=== PATIENT | male | born 1945 | race African-American/Black ===

== ENCOUNTER 2018-08-15 09:34 | Inpatient (IN) | payer OTHER ==
[2018-08-15] VITALS (13 sets, daily range): BP systolic 107–278; BP diastolic 41–114
[~2018-08-15] VITALS: Ht 167.6 cm; Wt 88.9 kg
[~2018-08-15 09:34] MED LIST: ASPI-986 PO; AZIT250T12 PO; CLOP75TA16 PO; COR25 PO; FLUT1AER IH; LISI10TA5 PO; METF-414 PO; P20 PO; RANO10003 PO; SACU1TAB7 PO
[2018-08-15 13:31] LABS: HEMATOCRIT. 37.2 % (42.0-52.0); HEMOGLOBIN. 12.2 g/dL (14.0-18.0); MEAN CORPUSCULAR HEMOGLOBIN 29.8 pg (28.0-32.0); MEAN CORPUSCULAR VOLUME 91.2 fL (80.0-94.0); MEAN PLATELET VOLUME 8.6 fl (7.4-10.4); PLATELET 262 x1000/uL (130-400); RED BLOOD CELL COUNT 4.08 mill/uL (4.7-6.1); RED CELL DISTRIBUTION WIDTH 16.2 % (11.6-14.6)
[2018-08-15 13:37] LABS: CHLORIDE 101 mEq/L (98-107)
[2018-08-15] MEDS ORDERED: ONDANSETRON HCL 4MG/2ML INJ IV STA (14:08)
[2018-08-15 14:09] LABS: PLATELET ESTIMATE NORMAL
[2018-08-15] MEDS ORDERED: MAGNESIUM/ALUMINUM HYDROXIDE/SIMETHICONE 30ML UDC PO ONE (14:15)
[2018-08-15] MEDS ORDERED: VISCOUS LIDOCAINE 2% 15 ML UDC PO ONE (14:15)
[2018-08-15] MEDS ORDERED: MORPHINE SULFATE 4 MG/ML CPJ (NOT FOR IM USE) IV ONE (14:30)
[2018-08-15 14:33] LABS: CLARITY URINE CLEAR (CLEAR); COLOR URINE YELLOW (YELLOW); KETONES URINE NEGATIVE (NEGATIVE); LEUKOCYTE ESTERASE URINE TRACE (NEGATIVE); NITRITE URINE NEGATIVE (NEGATIVE); OCCULT BLOOD URINE NEGATIVE (NEGATIVE); PROTEIN URINE NEGATIVE (NEGATIVE); SPECIFIC GRAVITY URINE 1.015 (1.005-1.030); UROBILINOGEN URINE 0.2 E.U./dL (0.2-1.0)
[2018-08-15] MEDS ORDERED: ALBUTEROL (0.083%) 2.5MG/3ML NEB HHN STA (15:25)
[2018-08-15] MEDS ORDERED: IPRATROPIUM BROMIDE (0.02%) 0.5MG/2.5ML NEB HHN STA (15:25)
[2018-08-15] MEDS ORDERED: SODIUM CHLORIDE 0.9% 1,000 ML IV ONE ×2 (16:00)
[2018-08-15] MEDS ORDERED: PIPERACILLIN/TAZ 3.375G PREMIX 50 ML IV ONE (16:00)
[2018-08-15] MEDS ORDERED: HYDROMORPHONE HCL/PF 2MG/ML CPJ IV ONE (16:00)
[2018-08-15 16:14] LABS: BG BASE EXCESS 2.9 mmol/L (-2.0-2.0); BG CARBOXYHEMOGLOBIN 0.6 % (0.5-1.5); BG DEOXYHEMOGLOBIN 0.6 % (0.0-5.0); BG HCO3 ACT 25.4 mmol/L (22.0-26.0); BG METHEMOGLOBIN 0.5 % (0.0-1.5); BG OXYGEN SATURATION 99.4 % (92.0-98.5); BG OXYHEMOGLOBIN 98.3 % (94.0-97.0); BG PH 7.517 (7.350-7.450); BG PO2 195.8 mmHg (75.0-100.0); BG SAMPLE SITE LEFT BRACHIAL; BG TOTAL HEMOGLOBIN 12.3 g/dL (12.0-18.0)
[2018-08-15 16:35] LABS: INR 1.1; PROTHROMBIN TIME 10.6 sec (9.1-11.1)
[2018-08-15] MEDS ORDERED: MIDAZOLAM HCL 2 MG/2 ML VIAL ONE (16:48)
[2018-08-15] MEDS ORDERED: FENTANYL CITRATE/PF 50MCG/ML 2ML VIAL ONE (16:48)
[2018-08-15] MEDS ORDERED: PROPOFOL 200MG/20ML VIAL IV ONE ×2 (16:50→19:34)
[2018-08-15] MEDS ORDERED: LIDOCAINE HCL/PF 1% 10 MG/ML 5ML VIAL ONE (16:52)
[2018-08-15] MEDS ORDERED: SUCCINYLCHOLINE CHLORIDE 200MG/10ML IV ONE (16:54)
[2018-08-15] MEDS ORDERED: SODIUM CHLORIDE 0.9% 10ML VIAL ONE ×2 (16:55→16:59)
[2018-08-15] MEDS ORDERED: PHENYLEPHRINE HCL 10 MG/ML 1ML (IV VIAL) IV ONE (16:56)
[2018-08-15] MEDS ORDERED: LEVOFLOXACIN 500MG PREMIX 0 ML IV ONE (17:01)
[2018-08-15] MEDS ORDERED: METRONIDAZOLE 500 MG PREMIX 0 ML IV ONE (17:02)
[2018-08-15] MEDS ORDERED: BUPIVACAINE HCL/PF 0.5% (5MG/ML) 10ML ONE (17:02)
[2018-08-15] MEDS ORDERED: ROCURONIUM BROMIDE 10MG/ML VIAL 5ML IV ONE ×2 (17:04→18:31)
[2018-08-15] MEDS ORDERED: NOREPINEPHRINE 4MG/250ML PMX 250 ML IV NR (17:45)
[2018-08-15] MEDS ORDERED: NITROGLYCERIN OINT 1GM/INCH UDPKT TD NR (17:47)
[2018-08-15] MEDS ORDERED: DEXT 5%/0.45% NACL KCL 20MEQ/L 1,000 ML IV SCH (17:48)
[2018-08-15] MEDS ORDERED: ONDANSETRON HCL 4MG/2ML INJ IV PRN (18:00)
[2018-08-15 18:17] LABS: PARTIAL THROMBOPLASTIN TIME 29.7 sec (23.4-31.0)
[2018-08-15 19:07] LABS: BG BASE EXCESS -0.7 mmol/L (-2.0-2.0); BG CARBOXYHEMOGLOBIN 0.1 % (0.5-1.5); BG DEOXYHEMOGLOBIN 0.6 % (0.0-5.0); BG FRACTION INSPIRED OXYGEN 100; BG METHEMOGLOBIN 0.5 % (0.0-1.5); BG OXYGEN SATURATION 99.4 % (92.0-98.5); BG OXYHEMOGLOBIN 98.8 % (94.0-97.0); BG PCO2 39.4 mmHg (35.0-45.0); BG PH 7.402 (7.350-7.450); BG PO2 332.4 mmHg (75.0-100.0); BG SAMPLE SITE A-LINE; BG TOTAL HEMOGLOBIN 11.4 g/dL (12.0-18.0); BG VENT MODE AMBU BAG
[2018-08-15] MEDS ORDERED: ENALAPRIL 1.25MG/ML VIAL 1ML IV ONE (20:58)
[2018-08-15] MEDS ORDERED: ENALAPRIL 1.25MG/ML VIAL 1ML IV PRN (21:00)
[2018-08-15] MEDS ORDERED: LORAZEPAM 2MG/ML CPJ IV PRN (21:00)
[2018-08-15] MEDS: DEXT 5%/0.45% NACL KCL 20MEQ/L 1,000 ML IV SCH (22:13)
[2018-08-15] MEDS: CEFAZOLIN 1000MG PREMIX 50 ML IV SCH (22:23)
[2018-08-15] MEDS ORDERED: FENTANYL CITRATE/PF 500 MCG in SODIUM CHLORIDE 0.9% 40 ML IV PRN (22:30)
[2018-08-15] MEDS: HYDROMORPHONE HCL/PF 2MG/ML CPJ IV PRN (22:33)
[2018-08-15] MEDS: MIDAZOLAM HCL 50 MG in DEXTROSE 5% WATER 40 ML IV PRN (23:28)
[2018-08-16] VITALS (109 sets, daily range): BP systolic 0–185; BP diastolic 0–147
[2018-08-16 00:55] LABS: BG CARBOXYHEMOGLOBIN 0.3 % (0.5-1.5); BG DEOXYHEMOGLOBIN 0.9 % (0.0-5.0); BG FRACTION INSPIRED OXYGEN 50; BG HCO3 ACT 24.8 mmol/L (22.0-26.0); BG METHEMOGLOBIN 0.6 % (0.0-1.5); BG OXYGEN SATURATION 99.1 % (92.0-98.5); BG OXYHEMOGLOBIN 98.2 % (94.0-97.0); BG PCO2 50.8 mmHg (35.0-45.0); BG PH 7.307 (7.350-7.450); BG PO2 195.5 mmHg (75.0-100.0); BG SAMPLE SITE A-LINE; BG TIDAL VOLUME(mL) 500 mL; BG TOTAL HEMOGLOBIN 12.8 g/dL (12.0-18.0); BG VENT MODE VENT - A/C; BG VENT RATE 16 set
[2018-08-16 00:59] LABS: HEMOGLOBIN 11.4 g/dL (14.0-18.0); MEAN CORPUSCULAR HEMOGLOBIN 29.6 pg (28.0-32.0); MEAN CORPUSCULAR VOLUME 90.9 fL (80.0-94.0); PLATELET 231 x1000/uL (130-400); RED BLOOD CELL COUNT 3.85 mill/uL (4.7-6.1); RED CELL DISTRIBUTION WIDTH 16.6 % (11.6-14.6)
[2018-08-16 01:03] LABS: CHLORIDE 108 mEq/L (98-107)
[2018-08-16] MEDS: METRONIDAZOLE 500 MG PREMIX 100 ML IV SCH ×2 (02:15→09:17)
[2018-08-16] MEDS ORDERED: SODIUM CHLORIDE 0.9% 500 ML IV SCH (04:15)
[2018-08-16] MEDS ORDERED: SODIUM CHLORIDE 0.9% 500 ML IV ONE ×3 (05:15→09:00)
[2018-08-16] MEDS: CEFAZOLIN 1000MG PREMIX 50 ML IV SCH ×2 (06:15→14:26)
[2018-08-16 06:34] LABS: HEMATOCRIT. 31.7 % (42.0-52.0); HEMOGLOBIN. 10.4 g/dL (14.0-18.0); MEAN CORPUSCULAR HEMOGLOBIN 29.7 pg (28.0-32.0); MEAN CORPUSCULAR VOLUME 90.8 fL (80.0-94.0); MEAN PLATELET VOLUME 9.8 fl (7.4-10.4); PLATELET 149 x1000/uL (130-400); RED BLOOD CELL COUNT 3.49 mill/uL (4.7-6.1); RED CELL DISTRIBUTION WIDTH 16.3 % (11.6-14.6)
[2018-08-16 06:51] LABS: CHLORIDE 109 mEq/L (98-107)
[2018-08-16] MEDS ORDERED: NOREPINEPHRINE 32 MG in DEXT 5% WATER 468 ML IV PRN (08:00)
[2018-08-16] MEDS ORDERED: NOREPINEPHRINE BITARTRATE 1MG/ML 4ML IV ONE (08:21)
[2018-08-16] MEDS ORDERED: PHENYLEPHRINE 40 MG in DEXT 5% WATER 246 ML IV PRN (09:00)
[2018-08-16] MEDS: ACETAMINOPHEN 325MG TABLET PO PRN (09:17)
[2018-08-16] MEDS: ENOXAPARIN 40MG/0.4ML SYR SUBCUT SCH (09:17)
[2018-08-16] MEDS: DEXT 5%/0.45% NACL KCL 20MEQ/L 1,000 ML IV SCH ×2 (09:19→16:51)
[2018-08-16] MEDS: MIDAZOLAM HCL 50 MG in DEXTROSE 5% WATER 40 ML IV PRN (09:40)
[2018-08-16 10:32] LABS: BG BASE EXCESS -2.2 mmol/L (-2.0-2.0); BG CARBOXYHEMOGLOBIN 0.2 % (0.5-1.5); BG FRACTION INSPIRED OXYGEN 50; BG HCO3 ACT 22.2 mmol/L (22.0-26.0); BG METHEMOGLOBIN 0.5 % (0.0-1.5); BG OXYHEMOGLOBIN 98.3 % (94.0-97.0); BG PCO2 36.8 mmHg (35.0-45.0); BG PH 7.399 (7.350-7.450); BG PO2 188.4 mmHg (75.0-100.0); BG SAMPLE SITE RIGHT RADIAL; BG TIDAL VOLUME(mL) 500 mL; BG TOTAL HEMOGLOBIN 10.6 g/dL (12.0-18.0); BG VENT MODE VENT - A/C; BG VENT RATE 20 set
[2018-08-16] MEDS ORDERED: VANCOMYCIN 1250MG in DEXTROSE 5% WATER 250ML IV NR (11:00)
[2018-08-16] MEDS: PIPERACILLIN/TAZ 3.375G PREMIX 50 ML IV SCH ×3 (11:10→22:34)
[2018-08-16] MEDS ORDERED: PIPERACILLIN/TAZOBACTAM 3.375GM/50ML PREMIX IV ONE (12:00)
[2018-08-16 14:55] LABS: PLATELET ESTIMATE NORMAL
[2018-08-16] MEDS ORDERED: DEXTROSE 50% WATER 50ML SYRINGE IV PRN (16:15)
[2018-08-16] MEDS: PANTOPRAZOLE SODIUM 40 MG/VIAL IV SCH (16:51)
[2018-08-16] MEDS: BLOOD SUGAR DIAGNOSTIC STRIP TEST SCH ×2 (16:52→23:32)
[2018-08-16] MEDS: INSULIN LISPRO 100 UNITS/ML SUBCUT SCH ×2 (16:52→23:32)
[2018-08-16] MEDS ORDERED: LORAZEPAM 2MG/ML CPJ IV PRN (17:00)
[2018-08-16] MEDS: LORAZEPAM 2MG/ML CPJ IM PRN (21:09)
[2018-08-16] MEDS: VANCOMYCIN 1 G PREMIX 200 ML IV SCH (23:17)
[2018-08-17] VITALS (96 sets, daily range): BP systolic 103–171; BP diastolic 42–116
[2018-08-17] MEDS: LORAZEPAM 2MG/ML CPJ IM PRN (03:31)
[2018-08-17] MEDS: DEXT 5%/0.45% NACL KCL 20MEQ/L 1,000 ML IV SCH ×2 (03:32→14:13)
[2018-08-17 04:57] LABS: BASOPHILS % 0.2 % (0.0-2.0); EOSINOPHILS % 2.4 % (0.0-5.0); HEMATOCRIT. 30.1 % (42.0-52.0); LYMPHOCYTES % 8.1 % (20.0-50.0); MEAN CORPUSCULAR HEMOGLOBIN 30.3 pg (28.0-32.0); MEAN CORPUSCULAR VOLUME 91.1 fL (80.0-94.0); MEAN PLATELET VOLUME 9.6 fl (7.4-10.4); MONOCYTES % 8.7 % (2.0-8.0); NEUTROPHILS % 80.6 % (40.0-76.0); PLATELET 175 x1000/uL (130-400); RED BLOOD CELL COUNT 3.31 mill/uL (4.7-6.1); RED CELL DISTRIBUTION WIDTH 16.6 % (11.6-14.6)
[2018-08-17 05:18] LABS: CHLORIDE 107 mEq/L (98-107)
[2018-08-17] MEDS: PIPERACILLIN/TAZ 3.375G PREMIX 50 ML IV SCH ×4 (05:21→22:30)
[2018-08-17] MEDS: HYDROMORPHONE HCL/PF 2MG/ML CPJ IM PRN (05:22)
[2018-08-17] MEDS: INSULIN LISPRO 100 UNITS/ML SUBCUT SCH ×3 (06:00→17:00)
[2018-08-17] MEDS: BLOOD SUGAR DIAGNOSTIC STRIP TEST SCH ×3 (06:17→17:00)
[2018-08-17] MEDS: PANTOPRAZOLE SODIUM 40 MG/VIAL IV SCH (08:49)
[2018-08-17] MEDS: ENOXAPARIN 40MG/0.4ML SYR SUBCUT SCH (08:50)
[2018-08-17 08:56] LABS: BG BASE EXCESS 0.9 mmol/L (-2.0-2.0); BG CARBOXYHEMOGLOBIN 0.3 % (0.5-1.5); BG DEOXYHEMOGLOBIN 0.9 % (0.0-5.0); BG FRACTION INSPIRED OXYGEN 40; BG HCO3 ACT 25.5 mmol/L (22.0-26.0); BG METHEMOGLOBIN 0.1 % (0.0-1.5); BG OXYGEN SATURATION 99.1 % (92.0-98.5); BG OXYHEMOGLOBIN 98.7 % (94.0-97.0); BG PCO2 40.6 mmHg (35.0-45.0); BG PH 7.416 (7.350-7.450); BG PO2 156.7 mmHg (75.0-100.0); BG SAMPLE SITE RIGHT BRACHIAL; BG TIDAL VOLUME(mL) 500 mL; BG TOTAL HEMOGLOBIN 9.7 g/dL (12.0-18.0); BG VENT MODE VENT - A/C; BG VENT RATE 20 set
[2018-08-17] MEDS: VANCOMYCIN 1 G PREMIX 200 ML IV SCH ×2 (10:04→22:29)
[2018-08-17] MEDS ORDERED: IPRATROPIUM/ALBUTEROL 0.5-3(2.5)MG/3ML NEB HHN PRN (11:45)
[2018-08-17] MEDS: METHYLPREDNISOLONE SOD SUCC 40 MG/ML VIAL IV SCH ×2 (12:15→20:51)
[2018-08-17 12:37] LABS: BG BASE EXCESS 1.7 mmol/L (-2.0-2.0); BG CARBOXYHEMOGLOBIN 0.3 % (0.5-1.5); BG DEOXYHEMOGLOBIN 3.6 % (0.0-5.0); BG FRACTION INSPIRED OXYGEN 30; BG HCO3 ACT 26.6 mmol/L (22.0-26.0); BG METHEMOGLOBIN 0.3 % (0.0-1.5); BG OXYGEN SATURATION 96.4 % (92.0-98.5); BG OXYHEMOGLOBIN 95.8 % (94.0-97.0); BG PCO2 43.1 mmHg (35.0-45.0); BG PH 7.408 (7.350-7.450); BG PO2 84.9 mmHg (75.0-100.0); BG PRESSURE SUPPORT 10; BG SAMPLE SITE LEFT RADIAL; BG TOTAL HEMOGLOBIN 9.9 g/dL (12.0-18.0); BG VENT MODE VENT - CPAP
[2018-08-17] MEDS ORDERED: LORAZEPAM 2MG/ML CPJ IV PRN (13:00)
[2018-08-17] MEDS: FUROSEMIDE 40MG/4ML VIAL IVP SCH (14:13)
[2018-08-17] MEDS: IPRATROPIUM/ALBUTEROL 0.5-3(2.5)MG/3ML NEB HHN SCH ×2 (15:37→20:21)
[2018-08-18] VITALS (66 sets, daily range): BP systolic 120–186; BP diastolic 53–94
[2018-08-18] MEDS: BLOOD SUGAR DIAGNOSTIC STRIP TEST SCH ×5 (00:14→23:54)
[2018-08-18] MEDS: IPRATROPIUM/ALBUTEROL 0.5-3(2.5)MG/3ML NEB HHN SCH ×6 (00:14→20:09)
[2018-08-18] MEDS: INSULIN LISPRO 100 UNITS/ML SUBCUT SCH ×4 (00:18→18:21)
[2018-08-18] MEDS: DEXT 5%/0.45% NACL KCL 20MEQ/L 1,000 ML IV SCH ×3 (00:21→23:54)
[2018-08-18] MEDS: METHYLPREDNISOLONE SOD SUCC 40 MG/ML VIAL IV SCH ×3 (04:40→20:45)
[2018-08-18] MEDS: PIPERACILLIN/TAZ 3.375G PREMIX 50 ML IV SCH ×4 (04:41→23:35)
[2018-08-18 04:46] LABS: HEMATOCRIT. 26.4 % (42.0-52.0); HEMOGLOBIN. 8.7 g/dL (14.0-18.0); MEAN CORPUSCULAR HEMOGLOBIN 29.8 pg (28.0-32.0); MEAN CORPUSCULAR VOLUME 89.9 fL (80.0-94.0); MEAN PLATELET VOLUME 9.3 fl (7.4-10.4); PLATELET 160 x1000/uL (130-400); RED BLOOD CELL COUNT 2.93 mill/uL (4.7-6.1); RED CELL DISTRIBUTION WIDTH 16.5 % (11.6-14.6)
[2018-08-18 04:50] LABS: CHLORIDE 105 mEq/L (98-107)
[2018-08-18 07:29] LABS: BG BASE EXCESS 1.8 mmol/L (-2.0-2.0); BG CARBOXYHEMOGLOBIN 0.5 % (0.5-1.5); BG DEOXYHEMOGLOBIN 3.9 % (0.0-5.0); BG FRACTION INSPIRED OXYGEN 30; BG METHEMOGLOBIN 0.3 % (0.0-1.5); BG OXYGEN SATURATION 96.1 % (92.0-98.5); BG OXYHEMOGLOBIN 95.3 % (94.0-97.0); BG PCO2 39.1 mmHg (35.0-45.0); BG PH 7.441 (7.350-7.450); BG PO2 82.5 mmHg (75.0-100.0); BG SAMPLE SITE RIGHT RADIAL; BG TIDAL VOLUME(mL) 500 mL; BG TOTAL HEMOGLOBIN 9.4 g/dL (12.0-18.0); BG VENT MODE VENT - A/C; BG VENT RATE 20 set
[2018-08-18 08:55] LABS: PLATELET ESTIMATE NORMAL
[2018-08-18] MEDS: FUROSEMIDE 40MG/4ML VIAL IVP SCH (08:57)
[2018-08-18] MEDS: ENOXAPARIN 40MG/0.4ML SYR SUBCUT SCH (08:57)
[2018-08-18] MEDS: PANTOPRAZOLE SODIUM 40 MG/VIAL IV SCH (08:57)
[2018-08-18] MEDS: VANCOMYCIN 1 G PREMIX 200 ML IV SCH ×2 (12:15→23:35)
[2018-08-18] MEDS: HYDROMORPHONE HCL/PF 2MG/ML CPJ IV PRN (16:54)
[2018-08-19] VITALS (55 sets, daily range): BP systolic 65–211; BP diastolic 41–96
[2018-08-19] MEDS: INSULIN LISPRO 100 UNITS/ML SUBCUT SCH ×4 (00:15→17:09)
[2018-08-19] MEDS: IPRATROPIUM/ALBUTEROL 0.5-3(2.5)MG/3ML NEB HHN SCH ×6 (00:54→20:41)
[2018-08-19] MEDS: METHYLPREDNISOLONE SOD SUCC 40 MG/ML VIAL IV SCH ×3 (04:17→20:20)
[2018-08-19] MEDS: PIPERACILLIN/TAZ 3.375G PREMIX 50 ML IV SCH ×4 (04:17→22:27)
[2018-08-19 05:02] LABS: HEMATOCRIT. 27.2 % (42.0-52.0); HEMOGLOBIN. 9.1 g/dL (14.0-18.0); MEAN CORPUSCULAR HEMOGLOBIN 30.1 pg (28.0-32.0); MEAN CORPUSCULAR VOLUME 90.1 fL (80.0-94.0); MEAN PLATELET VOLUME 9.7 fl (7.4-10.4); PLATELET 178 x1000/uL (130-400); RED BLOOD CELL COUNT 3.02 mill/uL (4.7-6.1); RED CELL DISTRIBUTION WIDTH 16.5 % (11.6-14.6)
[2018-08-19 05:09] LABS: CHLORIDE 105 mEq/L (98-107)
[2018-08-19] MEDS: HYDROMORPHONE HCL/PF 2MG/ML CPJ IV PRN ×3 (06:16→22:20)
[2018-08-19] MEDS: BLOOD SUGAR DIAGNOSTIC STRIP TEST SCH ×3 (06:34→17:04)
[2018-08-19] MEDS: ENOXAPARIN 40MG/0.4ML SYR SUBCUT SCH (08:31)
[2018-08-19] MEDS: PANTOPRAZOLE SODIUM 40 MG/VIAL IV SCH (08:31)
[2018-08-19] MEDS: ACETAMINOPHEN 325MG TABLET PO PRN (09:55)
[2018-08-19] MEDS: VANCOMYCIN 1 G PREMIX 200 ML IV SCH ×2 (12:15→23:05)
[2018-08-19] MEDS: DEXT 5%/0.45% NACL KCL 20MEQ/L 1,000 ML IV SCH (12:25)
[2018-08-19] MEDS ORDERED: LORAZEPAM 2MG/ML CPJ IV PRN (13:00)
[2018-08-19] MEDS ORDERED: INSULIN GLARGINE UD 100 UNITS/ML SYR SUBCUT ONE (14:00)
[2018-08-19 14:45] LABS: BG BASE EXCESS 0.5 mmol/L (-2.0-2.0); BG CARBOXYHEMOGLOBIN 0.3 % (0.5-1.5); BG DEOXYHEMOGLOBIN 2.6 % (0.0-5.0); BG FRACTION INSPIRED OXYGEN 30; BG HCO3 ACT 24.6 mmol/L (22.0-26.0); BG OXYGEN SATURATION 97.4 % (92.0-98.5); BG OXYHEMOGLOBIN 97.1 % (94.0-97.0); BG PCO2 37.2 mmHg (35.0-45.0); BG PH 7.438 (7.350-7.450); BG PO2 99.2 mmHg (75.0-100.0); BG SAMPLE SITE RIGHT RADIAL; BG TIDAL VOLUME(mL) 500 mL; BG TOTAL HEMOGLOBIN 9.8 g/dL (12.0-18.0); BG VENT MODE VENT - A/C; BG VENT RATE 20 set
[2018-08-19 15:03] LABS: PLATELET ESTIMATE NORMAL
[2018-08-19] MEDS ORDERED: DILTIAZEM HCL 125 MG in DEXT 5% WATER 100 ML IV SCH (21:45)
[2018-08-20] VITALS (79 sets, daily range): BP systolic 108–212; BP diastolic 55–126
[2018-08-20] MEDS: BLOOD SUGAR DIAGNOSTIC STRIP TEST SCH ×5 (00:22→23:52)
[2018-08-20] MEDS: INSULIN LISPRO 100 UNITS/ML SUBCUT SCH ×5 (00:29→23:57)
[2018-08-20] MEDS: IPRATROPIUM/ALBUTEROL 0.5-3(2.5)MG/3ML NEB HHN SCH ×6 (00:33→20:05)
[2018-08-20] MEDS: DEXT 5%/0.45% NACL KCL 20MEQ/L 1,000 ML IV SCH (03:14)
[2018-08-20] MEDS: PIPERACILLIN/TAZ 3.375G PREMIX 50 ML IV SCH ×4 (04:40→21:34)
[2018-08-20] MEDS ORDERED: NITROGLYCERIN OINT 1GM/INCH UDPKT TD SCH (06:15)
[2018-08-20 06:26] LABS: HEMATOCRIT. 29.3 % (42.0-52.0); HEMOGLOBIN. 9.7 g/dL (14.0-18.0); MEAN CORPUSCULAR HEMOGLOBIN 29.9 pg (28.0-32.0); MEAN CORPUSCULAR VOLUME 90.1 fL (80.0-94.0); MEAN PLATELET VOLUME 9.8 fl (7.4-10.4); PLATELET 189 x1000/uL (130-400); RED BLOOD CELL COUNT 3.25 mill/uL (4.7-6.1); RED CELL DISTRIBUTION WIDTH 16.4 % (11.6-14.6)
[2018-08-20 06:37] LABS: CHLORIDE 106 mEq/L (98-107)
[2018-08-20] MEDS: NITROGLYCERIN OINT 1GM/INCH UDPKT TD PRN (06:46)
[2018-08-20 08:01] LABS: PLATELET ESTIMATE NORMAL
[2018-08-20 08:27] LABS: BG BASE EXCESS 0.6 mmol/L (-2.0-2.0); BG CARBOXYHEMOGLOBIN 0.3 % (0.5-1.5); BG DEOXYHEMOGLOBIN 2.5 % (0.0-5.0); BG FRACTION INSPIRED OXYGEN 30; BG HCO3 ACT 23.8 mmol/L (22.0-26.0); BG METHEMOGLOBIN 0.6 % (0.0-1.5); BG OXYGEN SATURATION 97.5 % (92.0-98.5); BG OXYHEMOGLOBIN 96.6 % (94.0-97.0); BG PCO2 33.1 mmHg (35.0-45.0); BG PH 7.475 (7.350-7.450); BG PO2 109.3 mmHg (75.0-100.0); BG SAMPLE SITE RIGHT RADIAL; BG TIDAL VOLUME(mL) 500 mL; BG TOTAL HEMOGLOBIN 10.1 g/dL (12.0-18.0); BG VENT MODE VENT - A/C; BG VENT RATE 20 set
[2018-08-20] MEDS: METHYLPREDNISOLONE SOD SUCC 40 MG/ML VIAL IV SCH ×2 (09:21→21:15)
[2018-08-20] MEDS: ENOXAPARIN 40MG/0.4ML SYR SUBCUT SCH (09:22)
[2018-08-20] MEDS: PANTOPRAZOLE SODIUM 40 MG/VIAL IV SCH (09:22)
[2018-08-20] MEDS ORDERED: FUROSEMIDE 100MG/10ML VIAL IVP NR (09:45)
[2018-08-20 10:06] LABS: BG BASE EXCESS 2.4 mmol/L (-2.0-2.0); BG CARBOXYHEMOGLOBIN 0.3 % (0.5-1.5); BG DEOXYHEMOGLOBIN 3.8 % (0.0-5.0); BG FRACTION INSPIRED OXYGEN 30; BG HCO3 ACT 26.1 mmol/L (22.0-26.0); BG METHEMOGLOBIN 0.3 % (0.0-1.5); BG OXYGEN SATURATION 96.2 % (92.0-98.5); BG OXYHEMOGLOBIN 95.6 % (94.0-97.0); BG PH 7.467 (7.350-7.450); BG PO2 86.2 mmHg (75.0-100.0); BG SAMPLE SITE RIGHT RADIAL; BG TIDAL VOLUME(mL) 500 mL; BG VENT MODE VENT - SIMV; BG VENT RATE 8 set
[2018-08-20] MEDS: INSULIN GLARGINE UD 100 UNITS/ML SYR SUBCUT SCH (10:10)
[2018-08-20] MEDS: NICARDIPINE 50 MG in SODIUM CHLORIDE 0.9% 230 ML IV SCH ×2 (11:06→22:29)
[2018-08-20] MEDS: VANCOMYCIN 1 G PREMIX 200 ML IV SCH (12:30)
[2018-08-20] MEDS: HYDROMORPHONE HCL/PF 2MG/ML CPJ IV PRN ×2 (12:41→18:04)
[2018-08-20 15:26] LABS: BG BASE EXCESS 2.5 mmol/L (-2.0-2.0); BG CARBOXYHEMOGLOBIN 0.3 % (0.5-1.5); BG DEOXYHEMOGLOBIN 4.4 % (0.0-5.0); BG FRACTION INSPIRED OXYGEN 30; BG HCO3 ACT 25.9 mmol/L (22.0-26.0); BG METHEMOGLOBIN 0.3 % (0.0-1.5); BG OXYGEN SATURATION 95.6 % (92.0-98.5); BG PCO2 35.4 mmHg (35.0-45.0); BG PH 7.482 (7.350-7.450); BG PRESSURE SUPPORT 10; BG SAMPLE SITE RIGHT RADIAL; BG TOTAL HEMOGLOBIN 10.9 g/dL (12.0-18.0); BG VENT MODE VENT - CPAP
[2018-08-20 17:23] LABS: BG BASE EXCESS 4.8 mmol/L (-2.0-2.0); BG CARBOXYHEMOGLOBIN 0.3 % (0.5-1.5); BG DEOXYHEMOGLOBIN 3.4 % (0.0-5.0); BG FRACTION INSPIRED OXYGEN 40; BG HCO3 ACT 28.3 mmol/L (22.0-26.0); BG METHEMOGLOBIN 0.3 % (0.0-1.5); BG OXYGEN SATURATION 96.6 % (92.0-98.5); BG PO2 86.4 mmHg (75.0-100.0); BG SAMPLE SITE RIGHT RADIAL; BG TOTAL HEMOGLOBIN 11.4 g/dL (12.0-18.0); BG VENT MODE MASK - AEROSOL
[2018-08-20] MEDS: ACETAMINOPHEN 325MG TABLET PO PRN (21:16)
[2018-08-20] MEDS: HYDROMORPHONE HCL/PF 2MG/ML CPJ IM PRN (23:00)
[2018-08-21] VITALS (72 sets, daily range): BP systolic 97–168; BP diastolic 48–88
[2018-08-21] MEDS: IPRATROPIUM/ALBUTEROL 0.5-3(2.5)MG/3ML NEB HHN SCH ×6 (00:16→21:34)
[2018-08-21] MEDS: VANCOMYCIN 1 G PREMIX 200 ML IV SCH ×2 (01:40→14:20)
[2018-08-21] MEDS: NICARDIPINE 50 MG in SODIUM CHLORIDE 0.9% 230 ML IV SCH (03:30)
[2018-08-21] MEDS: PIPERACILLIN/TAZ 3.375G PREMIX 50 ML IV SCH ×4 (04:35→23:03)
[2018-08-21] MEDS: NITROGLYCERIN OINT 1GM/INCH UDPKT TD PRN ×3 (05:35→05:49)
[2018-08-21 05:38] LABS: HEMATOCRIT. 31.4 % (42.0-52.0); HEMOGLOBIN. 10.4 g/dL (14.0-18.0); MEAN CORPUSCULAR HEMOGLOBIN 29.7 pg (28.0-32.0); MEAN CORPUSCULAR VOLUME 89.5 fL (80.0-94.0); RED BLOOD CELL COUNT 3.51 mill/uL (4.7-6.1); RED CELL DISTRIBUTION WIDTH 16.2 % (11.6-14.6)
[2018-08-21 05:55] LABS: CHLORIDE 104 mEq/L (98-107)
[2018-08-21] MEDS: BLOOD SUGAR DIAGNOSTIC STRIP TEST SCH ×4 (06:09→23:33)
[2018-08-21] MEDS: INSULIN LISPRO 100 UNITS/ML SUBCUT SCH ×3 (06:12→23:33)
[2018-08-21 08:18] LABS: PLATELET ESTIMATE NORMAL
[2018-08-21 08:20] LABS: MEAN PLATELET VOLUME 9.8 fl (7.4-10.4); PLATELET 230 x1000/uL (130-400)
[2018-08-21] MEDS: PANTOPRAZOLE SODIUM 40 MG/VIAL IV SCH (09:00)
[2018-08-21] MEDS: METHYLPREDNISOLONE SOD SUCC 40 MG/ML VIAL IV SCH (09:00)
[2018-08-21] MEDS: ENOXAPARIN 40MG/0.4ML SYR SUBCUT SCH (09:00)
[2018-08-21] MEDS: CARVEDILOL 3.125 MG TABLET PO SCH ×2 (11:13→21:22)
[2018-08-21] MEDS: INSULIN GLARGINE UD 100 UNITS/ML SYR SUBCUT SCH (11:14)
[2018-08-21] MEDS ORDERED: KCL 20MEQ/100ML PREMIX 100 ML IV SCH (12:00)
[2018-08-21] MEDS ORDERED: PHENOL/SODIUM PHENOLATE 1.4% SRPAY 177ML MM PRN (13:00)
[2018-08-21 13:22] LABS: HEMATOCRIT. 31.9 % (42.0-52.0); HEMOGLOBIN. 10.4 g/dL (14.0-18.0); MEAN CORPUSCULAR HEMOGLOBIN 29.1 pg (28.0-32.0); MEAN CORPUSCULAR VOLUME 89.8 fL (80.0-94.0); MEAN PLATELET VOLUME 9.3 fl (7.4-10.4); PLATELET 234 x1000/uL (130-400); RED BLOOD CELL COUNT 3.56 mill/uL (4.7-6.1); RED CELL DISTRIBUTION WIDTH 16.2 % (11.6-14.6)
[2018-08-21 13:41] LABS: PLATELET ESTIMATE NORMAL
[2018-08-21 13:47] LABS: CHLORIDE 107 mEq/L (98-107)
[2018-08-21] MEDS ORDERED: THROAT LOZENGES-BENZOCAINE/MENTH/CETYLPYRD CL LOZENGES MM PRN (14:00)
[2018-08-21] MEDS: HYDROMORPHONE HCL/PF 2MG/ML CPJ IM PRN (14:19)
[2018-08-21] MEDS: FUROSEMIDE 40MG TABLET PO SCH (14:20)
[2018-08-21] MEDS ORDERED: HYDROMORPHONE HCL/PF 2MG/ML CPJ IM PRN (19:00)
[2018-08-21] MEDS: ENOXAPARIN 80MG/0.8ML SYR SUBCUT SCH (21:22)
[2018-08-21] MEDS: HYDROMORPHONE HCL/PF 2MG/ML CPJ IV PRN (21:55)
[2018-08-22] VITALS (12 sets, daily range): BP systolic 117–157; BP diastolic 47–80
[2018-08-22] MEDS: VANCOMYCIN 1 G PREMIX 200 ML IV SCH ×2 (00:34→12:35)
[2018-08-22] MEDS: IPRATROPIUM/ALBUTEROL 0.5-3(2.5)MG/3ML NEB HHN SCH ×6 (00:46→21:24)
[2018-08-22] MEDS: NITROGLYCERIN OINT 1GM/INCH UDPKT TD SCH ×2 (04:37→15:05)
[2018-08-22] MEDS: PIPERACILLIN/TAZ 3.375G PREMIX 50 ML IV SCH ×4 (05:45→23:05)
[2018-08-22] MEDS: INSULIN LISPRO 100 UNITS/ML SUBCUT SCH ×3 (06:00→18:55)
[2018-08-22] MEDS: BLOOD SUGAR DIAGNOSTIC STRIP TEST SCH ×3 (06:19→17:20)
[2018-08-22] MEDS: HYDROMORPHONE HCL/PF 2MG/ML CPJ IV PRN ×2 (06:22→15:04)
[2018-08-22 07:31] LABS: INR 1.1; PROTHROMBIN TIME 10.6 sec (9.1-11.1)
[2018-08-22 07:39] LABS: HEMATOCRIT. 31.7 % (42.0-52.0); HEMOGLOBIN. 10.2 g/dL (14.0-18.0); MEAN CORPUSCULAR HEMOGLOBIN 29.2 pg (28.0-32.0); MEAN CORPUSCULAR VOLUME 90.5 fL (80.0-94.0); MEAN PLATELET VOLUME 9.9 fl (7.4-10.4); PLATELET 206 x1000/uL (130-400); RED CELL DISTRIBUTION WIDTH 16.4 % (11.6-14.6)
[2018-08-22 07:47] LABS: CHLORIDE 106 mEq/L (98-107)
[2018-08-22] MEDS: METHYLPREDNISOLONE SOD SUCC 40 MG/ML VIAL IV SCH (09:25)
[2018-08-22] MEDS: PANTOPRAZOLE SODIUM 40 MG/VIAL IV SCH (09:25)
[2018-08-22] MEDS: ENOXAPARIN 80MG/0.8ML SYR SUBCUT SCH (09:26)
[2018-08-22] MEDS: FUROSEMIDE 40MG TABLET PO SCH (09:26)
[2018-08-22] MEDS: INSULIN GLARGINE UD 100 UNITS/ML SYR SUBCUT SCH (09:28)
[2018-08-22] MEDS: CARVEDILOL 3.125 MG TABLET PO SCH (09:28)
[2018-08-22] MEDS: ACETAMINOPHEN 325MG TABLET PO PRN (11:19)
[2018-08-22] MEDS: HYDROCODONE/ACETAMINOPHEN 5/325MG TABLET PO PRN (22:15)
[2018-08-23] VITALS (13 sets, daily range): BP systolic 109–168; BP diastolic 43–76
[2018-08-23] MEDS: BLOOD SUGAR DIAGNOSTIC STRIP TEST SCH ×4 (00:07→18:40)
[2018-08-23] MEDS: IPRATROPIUM/ALBUTEROL 0.5-3(2.5)MG/3ML NEB HHN SCH ×6 (00:33→20:26)
[2018-08-23] MEDS: VANCOMYCIN 1 G PREMIX 200 ML IV SCH ×2 (01:05→14:11)
[2018-08-23] MEDS: NITROGLYCERIN OINT 1GM/INCH UDPKT TD SCH ×2 (05:15→17:26)
[2018-08-23] MEDS: PIPERACILLIN/TAZ 3.375G PREMIX 50 ML IV SCH ×3 (05:15→17:26)
[2018-08-23] MEDS: HYDROCODONE/ACETAMINOPHEN 5/325MG TABLET PO PRN ×3 (05:32→20:10)
[2018-08-23] MEDS: INSULIN LISPRO 100 UNITS/ML SUBCUT SCH ×4 (05:56→18:39)
[2018-08-23] MEDS: NITROGLYCERIN 0.4MG TABLET SL SL PRN (06:09)
[2018-08-23 09:13] LABS: HEMOGLOBIN. 9.6 g/dL (14.0-18.0); MEAN CORPUSCULAR HEMOGLOBIN 29.7 pg (28.0-32.0); MEAN CORPUSCULAR VOLUME 89.5 fL (80.0-94.0); MEAN PLATELET VOLUME 8.7 fl (7.4-10.4); PLATELET 245 x1000/uL (130-400); RED BLOOD CELL COUNT 3.24 mill/uL (4.7-6.1); RED CELL DISTRIBUTION WIDTH 16.5 % (11.6-14.6)
[2018-08-23 09:20] LABS: CHLORIDE 105 mEq/L (98-107)
[2018-08-23] MEDS: PANTOPRAZOLE SODIUM 40 MG/VIAL IV SCH (10:55)
[2018-08-23] MEDS: METHYLPREDNISOLONE SOD SUCC 40 MG/ML VIAL IV SCH (10:55)
[2018-08-23] MEDS: TAMSULOSIN HCL 0.4MG SR CAPSULE PO SCH (10:56)
[2018-08-23] MEDS: FUROSEMIDE 40MG TABLET PO SCH (10:56)
[2018-08-23] MEDS: INSULIN GLARGINE UD 100 UNITS/ML SYR SUBCUT SCH (10:58)
[2018-08-23] MEDS: POTASSIUM CHLORIDE 20MEQ TABLET SR PO SCH (11:00)
[2018-08-23] MEDS: ENOXAPARIN 40MG/0.4ML SYR SUBCUT SCH (11:15)
[2018-08-23 11:21] LABS: PLATELET ESTIMATE NORMAL
[2018-08-23] MEDS: MORPHINE SULFATE 4 MG/ML CPJ (NOT FOR IM USE) IV PRN ×3 (11:24→15:32)
[2018-08-23 16:11] LABS: PLATELET ESTIMATE NORMAL
[2018-08-24] VITALS (13 sets, daily range): BP systolic 108–163; BP diastolic 55–76
[2018-08-24] MEDS: NITROGLYCERIN 0.4MG TABLET SL SL PRN ×2 (00:02→08:03)
[2018-08-24] MEDS: BLOOD SUGAR DIAGNOSTIC STRIP TEST SCH ×5 (00:09→23:50)
[2018-08-24] MEDS: IPRATROPIUM/ALBUTEROL 0.5-3(2.5)MG/3ML NEB HHN SCH ×6 (00:27→20:53)
[2018-08-24] MEDS: NITROGLYCERIN OINT 1GM/INCH UDPKT TD SCH ×2 (04:30→17:12)
[2018-08-24] MEDS: INSULIN LISPRO 100 UNITS/ML SUBCUT SCH ×5 (05:48→23:50)
[2018-08-24 07:18] LABS: HEMATOCRIT. 28.2 % (42.0-52.0); HEMOGLOBIN. 9.4 g/dL (14.0-18.0); MEAN CORPUSCULAR HEMOGLOBIN 29.2 pg (28.0-32.0); MEAN PLATELET VOLUME 8.6 fl (7.4-10.4); PLATELET 257 x1000/uL (130-400); RED BLOOD CELL COUNT 3.21 mill/uL (4.7-6.1)
[2018-08-24 08:00] LABS: CHLORIDE 105 mEq/L (98-107)
[2018-08-24] MEDS: METHYLPREDNISOLONE SOD SUCC 40 MG/ML VIAL IV SCH (08:03)
[2018-08-24] MEDS: POTASSIUM CHLORIDE 20MEQ TABLET SR PO SCH (08:03)
[2018-08-24] MEDS: ENOXAPARIN 40MG/0.4ML SYR SUBCUT SCH (08:04)
[2018-08-24] MEDS: FUROSEMIDE 40MG TABLET PO SCH (08:04)
[2018-08-24] MEDS: TAMSULOSIN HCL 0.4MG SR CAPSULE PO SCH (08:04)
[2018-08-24] MEDS: PANTOPRAZOLE SODIUM 40 MG/VIAL IV SCH (08:04)
[2018-08-24] MEDS: HYDROCODONE/ACETAMINOPHEN 5/325MG TABLET PO PRN (08:13)
[2018-08-24] MEDS: MORPHINE SULFATE 4 MG/ML CPJ (NOT FOR IM USE) IV PRN ×2 (08:28→21:52)
[2018-08-24] MEDS: INSULIN GLARGINE UD 100 UNITS/ML SYR SUBCUT SCH (11:49)
[2018-08-24 14:15] LABS: PLATELET ESTIMATE NORMAL
[2018-08-25] VITALS (14 sets, daily range): BP systolic 96–154; BP diastolic 52–74
[2018-08-25] MEDS: IPRATROPIUM/ALBUTEROL 0.5-3(2.5)MG/3ML NEB HHN SCH ×6 (01:07→21:03)
[2018-08-25] MEDS: NITROGLYCERIN OINT 1GM/INCH UDPKT TD SCH ×2 (04:37→16:37)
[2018-08-25] MEDS: INSULIN LISPRO 100 UNITS/ML SUBCUT SCH ×4 (06:00→23:56)
[2018-08-25] MEDS: BLOOD SUGAR DIAGNOSTIC STRIP TEST SCH ×4 (06:05→23:56)
[2018-08-25 06:56] LABS: HEMATOCRIT. 27.2 % (42.0-52.0); HEMOGLOBIN. 8.8 g/dL (14.0-18.0); MEAN CORPUSCULAR HEMOGLOBIN 28.8 pg (28.0-32.0); MEAN CORPUSCULAR VOLUME 88.6 fL (80.0-94.0); MEAN PLATELET VOLUME 8.8 fl (7.4-10.4); PLATELET 269 x1000/uL (130-400); RED BLOOD CELL COUNT 3.07 mill/uL (4.7-6.1); RED CELL DISTRIBUTION WIDTH 16.5 % (11.6-14.6)
[2018-08-25] MEDS: NITROGLYCERIN 0.4MG TABLET SL SL PRN ×3 (07:17→14:29)
[2018-08-25 07:51] LABS: CHLORIDE 107 mEq/L (98-107)
[2018-08-25] MEDS: POTASSIUM CHLORIDE 20MEQ TABLET SR PO SCH (08:55)
[2018-08-25] MEDS: METHYLPREDNISOLONE SOD SUCC 40 MG/ML VIAL IV SCH (08:55)
[2018-08-25] MEDS: PANTOPRAZOLE SODIUM 40 MG/VIAL IV SCH (08:55)
[2018-08-25] MEDS: TAMSULOSIN HCL 0.4MG SR CAPSULE PO SCH (08:56)
[2018-08-25] MEDS: ENOXAPARIN 40MG/0.4ML SYR SUBCUT SCH (08:56)
[2018-08-25] MEDS: FUROSEMIDE 40MG TABLET PO SCH (08:56)
[2018-08-25] MEDS: HYDROCODONE/ACETAMINOPHEN 5/325MG TABLET PO PRN (09:51)
[2018-08-25 10:31] LABS: PLATELET ESTIMATE NORMAL
[2018-08-25] MEDS ORDERED: REGADENOSON 0.4 MG/5 ML IV ONE (10:45)
[2018-08-25] MEDS: INSULIN GLARGINE UD 100 UNITS/ML SYR SUBCUT SCH (10:50)
[2018-08-25] MEDS ORDERED: POTASSIUM CHLORIDE INJ 40 MEQ in DEXT 5% WATER 250 ML IV NR (12:30)
[2018-08-25] MEDS: MORPHINE SULFATE 4 MG/ML CPJ (NOT FOR IM USE) IV PRN (23:52)
[2018-08-26] VITALS (11 sets, daily range): BP systolic 109–183; BP diastolic 53–73
[2018-08-26] MEDS: IPRATROPIUM/ALBUTEROL 0.5-3(2.5)MG/3ML NEB HHN SCH ×6 (01:00→15:23)
[2018-08-26] MEDS: NITROGLYCERIN OINT 1GM/INCH UDPKT TD SCH ×2 (04:15→16:09)
[2018-08-26] MEDS: INSULIN LISPRO 100 UNITS/ML SUBCUT SCH ×3 (05:58→17:18)
[2018-08-26] MEDS: BLOOD SUGAR DIAGNOSTIC STRIP TEST SCH ×3 (05:58→17:18)
[2018-08-26 07:13] LABS: BASOPHILS % 0.1 % (0.0-2.0); EOSINOPHILS % 0.2 % (0.0-5.0); HEMATOCRIT. 28.1 % (42.0-52.0); HEMOGLOBIN. 9.1 g/dL (14.0-18.0); LYMPHOCYTES % 7.1 % (20.0-50.0); MEAN CORPUSCULAR HEMOGLOBIN 29.1 pg (28.0-32.0); MEAN CORPUSCULAR VOLUME 89.6 fL (80.0-94.0); MEAN PLATELET VOLUME 8.9 fl (7.4-10.4); NEUTROPHILS % 83.6 % (40.0-76.0); PLATELET 278 x1000/uL (130-400); RED BLOOD CELL COUNT 3.14 mill/uL (4.7-6.1); RED CELL DISTRIBUTION WIDTH 17.1 % (11.6-14.6)
[2018-08-26] MEDS: POTASSIUM CHLORIDE 20MEQ TABLET SR PO SCH (08:00)
[2018-08-26] MEDS: FUROSEMIDE 40MG TABLET PO SCH (08:01)
[2018-08-26] MEDS: PANTOPRAZOLE SODIUM 40 MG/VIAL IV SCH (08:01)
[2018-08-26] MEDS: ENOXAPARIN 40MG/0.4ML SYR SUBCUT SCH (08:01)
[2018-08-26] MEDS: TAMSULOSIN HCL 0.4MG SR CAPSULE PO SCH (08:01)
[2018-08-26 09:08] LABS: CHLORIDE 106 mEq/L (98-107)
[2018-08-26] MEDS: INSULIN GLARGINE UD 100 UNITS/ML SYR SUBCUT SCH (10:48)
[2018-08-26] MEDS ORDERED: CARVEDILOL 3.125 MG TABLET PO NR (11:00)
[2018-08-26] MEDS ORDERED: AMIODARONE HCL 200 MG TABLET PO SCH (11:00)
[2018-08-26] MEDS ORDERED: CARVEDILOL 3.125 MG TABLET PO SCH (21:00)
== END 2018-08-26 18:00 | DRG 853 ==
LOC: ER 09:34 → ORIP 16:24 → EDBEDREQSVC 16:26 → EDBEDREQ 16:26 → CVICU 20:47 → 3WST 08-21 18:00
PROVIDERS: ADMIT Internal Medicine; ATTEND Internal Medicine
PROC: 0DTG0ZZ Resection of Left Large Intestine, Open Approach (ICD-10-PCS; principal; 2018-08-15)
PROC: 0D1L0Z4 Bypass Transverse Colon to Cutaneous, Open Approach (ICD-10-PCS; 2018-08-15)
PROC: 02HV33Z Insertion of Infusion Device into Superior Vena Cava, Percutaneous Approach (ICD-10-PCS; 2018-08-16)
PROC: B548ZZA Ultrasonography of Superior Vena Cava, Guidance (ICD-10-PCS; 2018-08-16)
PROC: 5A1955Z Respiratory Ventilation, Greater than 96 Consecutive Hours (ICD-10-PCS; 2018-08-16)
PROC: 0BH17EZ Insertion of Endotracheal Airway into Trachea, Via Natural or Artificial Opening (ICD-10-PCS; 2018-08-17)
DX: A41.9 Sepsis, unspecified organism (principal); I50.43 Acute on chronic combined systolic (congestive) and diastolic (congestive) heart failure; I21.4 Non-ST elevation (NSTEMI) myocardial infarction; R65.21 Severe sepsis with septic shock; J96.90 Respiratory failure, unspecified, unspecified whether with hypoxia or hypercapnia; E46 Unspecified protein-calorie malnutrition; J44.1 Chronic obstructive pulmonary disease with (acute) exacerbation; K57.20 Diverticulitis of large intestine with perforation and abscess without bleeding; T82.868A Thrombosis due to vascular prosthetic devices, implants and grafts, initial encounter; E11.51 Type 2 diabetes mellitus with diabetic peripheral angiopathy without gangrene; E86.0 Dehydration; E11.65 Type 2 diabetes mellitus with hyperglycemia; I11.0 Hypertensive heart disease with heart failure; K21.9 Gastro-esophageal reflux disease without esophagitis; I25.5 Ischemic cardiomyopathy; D63.8 Anemia in other chronic diseases classified elsewhere; E87.6 Hypokalemia; Y83.8 Other surgical procedures as the cause of abnormal reaction of the patient, or of later complication, without mention of misadventure at the time of the procedure; I25.10 Atherosclerotic heart disease of native coronary artery without angina pectoris; K80.20 Calculus of gallbladder without cholecystitis without obstruction; N40.1 Benign prostatic hyperplasia with lower urinary tract symptoms; R33.8 Other retention of urine; Z78.1 Physical restraint status; Z95.0 Presence of cardiac pacemaker; Z95.5 Presence of coronary angioplasty implant and graft; Z79.82 Long term (current) use of aspirin; Z79.84 Long term (current) use of oral hypoglycemic drugs; Z79.899 Other long term (current) drug therapy; Z68.31 Body mass index [BMI] 31.0-31.9, adult; Y92.89 Other specified places as the place of occurrence of the external cause
CPT/HCPCS: 36415; 36569; 36600; 71045; 74018; 74176; 76937; 78452; 80048; 80076; 80202; 82375; 82805; 82962; 83735; 83880; 84484; 85027; 86850; 86900; 87070; 88307; 92610; 93005; 93017; 93306; 93970; 94002; 94003; 94640; 96365; 96375; 97162; 99291; A9500; C1725; C1751; C9113; J0330; J0690; J1170; J1650; J1815; J1940; J1956; J2060; J2250; J2270; J2370; J2405; J2543; J2704; J2920; J3010; J3370; J3480; J3490; J7030; J7040; J7050; J7060; J7611; J7620